=== PATIENT | male | born 1950 | race Caucasian/White ===

== ENCOUNTER 2020-02-21 21:30 | Emergency (ER) | payer MEDICARE, SELFPAY ==
[2020-02-21 21:39] VITALS: BP 131/76; PULSE 88; RESP 16; TEMP 36.9; O2SAT 96; BMI 25.1
--- NOTE | 2020-02-21 22:56 | ED.GENADULT ---
HPI - General Adult General Chief complaint: Weakness Stated complaint: ?COVID SYMPTOMS Time Seen by Provider: 02/21/20 22:46 Source: patient Mode of arrival: ambulatory Limitations: no limitations History of Present Illness HPI narrative: patient comes to emergency room complaining of not feeling quite right. Patient states he does not have any pain, no respiratory symptoms. Patient states he is concerned that his son was recently diagnosed with COVID-19, was in the hospital for 7 days and recently discharged. Patient requesting a COVID test. Patient denies body aches, no fever no chills. MD complaint: Requesting COVID test Related Data Home Medications Medication Instructions Recorded Confirmed amiodarone 200 mg PO DAILY 02/21/20 02/21/20 amlodipine 5 mg PO DAILY 02/21/20 02/21/20 aspirin [Aspir-81] 81 mg PO DAILY 02/21/20 02/21/20 atorvastatin 80 mg PO DAILY 02/21/20 02/21/20 clopidogrel 75 mg PO DAILY 02/21/20 02/21/20 folic acid 1 mg PO DAILY 02/21/20 02/21/20 lisinopril 20 mg PO DAILY 02/21/20 02/21/20 metformin 500 mg PO BID 02/21/20 02/21/20 metoprolol succinate 50 mg PO DAILY 02/21/20 02/21/20 paroxetine HCl 20 mg PO DAILY 02/21/20 02/21/20 thiamine HCl (vitamin B1) [Vitamin 100 mg PO DAILY 02/21/20 02/21/20 B-1] Allergies Allergy/AdvReac Type Severity Reaction Status Date / Time No Known Allergies Allergy Verified 02/21/20 21:39 [No Known Allergies*] Review of Systems Review of Systems: Appearance: Alert. Oriented X3. No acute distress. states he does not feel quite right, patient unable to further explain Eyes: Pupils equal, round and reactive to light. ENT: Pharynx normal. Neck: Normal inspection. Neck supple. No lymph nodes noted. No crepitus CVS: Normal heart rate and rhythm. Pulses normal. Normal S1 and S2 Respiratory: No respiratory distress. Breath sounds normal. No Wheezing. No rales Abdomen: Soft and nontender. No rigidity. No distention. good BS x4 Skin: Skin warm and dry. Normal skin color. Normal skin turgor. Extremities: No lower extremity edema. No lower extremity edema. No Lacerations. No Rash Neuro: Oriented X 3. No motor deficit. No sensory deficit. Moving all extermities. No slurred speech. [facility] Past Medical History Medical History Depression Diabetes Hypertension Surgical History H/O kidney removal Social History Social History Advance Directives: No Physical Exam Vital Signs: Vital Signs: Last Vital Signs Temp 98.4 F 02/21/20 21:39 Pulse 88 02/21/20 21:39 Resp 16 02/21/20 21:39 BP 131/76 02/21/20 21:39 Pulse Ox 96 02/21/20 21:39 Body Mass Index 25.1 Appearance: Alert. Oriented X3. No acute distress. Eyes: Pupils equal, round and reactive to light. ENT: Pharynx normal. Neck: Normal inspection. Neck supple. No lymph nodes noted. No crepitus CVS: Normal heart rate and rhythm. Pulses normal. Normal S1 and S2 Respiratory: No respiratory distress. Breath sounds normal. No Wheezing. No rales Abdomen: Soft and nontender. No rigidity. No distention. good BS x4 Skin: Skin warm and dry. Normal skin color. Normal skin turgor. Extremities: No lower extremity edema. No lower extremity edema. No Lacerations. No Rash Neuro: Oriented X 3. No motor deficit. No sensory deficit. Moving all extermities. No slurred speech. Course Course Course Narrative: patient being tested for COVID-19. Discharge Plan Discharge Clinical Impression: Encounter for screening laboratory testing for COVID-19 virus Patient Disposition: Home, Self-Care Additional Instructions: please remain self quarantine until you get your results back. He will receive a phone call within 72 hours if your COVID-19 test is positive. Please follow-up with her primary care physician. If you have any worsening symptoms, shortness of breaths please return to the emergency room Prescriptions: No Action metformin 500 mg tablet 500 mg PO BID RF: 0 atorvastatin 80 mg tablet 80 mg PO DAILY RF: 0 amiodarone 200 mg tablet 200 mg PO DAILY RF: 0 metoprolol succinate 50 mg tablet extended release 24 hr 50 mg PO DAILY RF: 0 lisinopril 20 mg tablet 20 mg PO DAILY RF: 0 thiamine HCl (vitamin B1) [Vitamin B-1] 100 mg Tablet 100 mg PO DAILY RF: 0 amlodipine 2.5 mg tablet 5 mg PO DAILY RF: 0 clopidogrel 75 mg Tablet 75 mg PO DAILY RF: 0 aspirin [Aspir-81] 81 mg Tablet,Delayed Release (Dr/Ec) 81 mg PO DAILY RF: 0 paroxetine HCl 20 mg tablet 20 mg PO DAILY RF: 0 folic acid 1 mg tablet 1 mg PO DAILY RF: 0
== END 2020-02-21 23:19 | disposition home or self-care (01) ==
PROVIDERS: Emergency Provider Emergency Medicine; PCP Nurse Practitioner Family
DX: R50.9 Fever, unspecified (principal); Z20.828 Contact with and (suspected) exposure to other viral communicable diseases; Z79.899 Other long term (current) drug therapy
CPT/HCPCS: 99283; U0003

== ENCOUNTER 2020-09-09 13:38 | Outpatient (REF) | payer MEDICARE, SELFPAY | END 2020-09-09 13:39 | disposition home or self-care (01) | LOC: HO.LAB 13:38 | PROVIDERS: PCP Nurse Practitioner Family; Visit Provider Internal Medicine | DX: Z20.822 Contact with and (suspected) exposure to COVID-19 (principal) | CPT/HCPCS: U0003; U0005 ==

== ENCOUNTER 2021-05-18 13:03 | Outpatient (REF) | payer MEDICARE, SELFPAY ==
--- NOTE | ~2021-05-18 | CT_ITS ---
EXAMINATION: CT CHEST SCREENING CLINICAL INFORMATION: Nicotine dependence. Current smoker. 96-ywbl-lvax history. COMPARISON: Previous chest CT scans most recent 10/30/2019 and abdominal and pelvic CT September 2018. TECHNIQUE: Multidetector volumetric CT imaging of the chest is performed without contrast using low dose technique. Additional 2D coronal and sagittal reformatted images and axial 3D maximum intensity projection (MIP) images are generated on the CT workstation. This CT examination was performed using dose optimization techniques as appropriate, variously including the following: *Automated exposure control *Adjustment of mA and/or kV according to patient size (this includes techniques or standardized protocols for targeted exams where dose is matched to indication/reason for exam; i.e. extremities or head) *Use of iterative reconstruction technique DLP: 60 mGy-cm FINDINGS: LUNGS: There is evidence of emphysema. There is increased peripheral attenuation and increased interstitial markings suggestive of interstitial disease. There is interval increase in bilateral upper lobe peribronchial nodules or increased peribronchial attenuation. Largest is size a semisolid or heterogeneous left upper lobe nodule now measuring 5 mm axial image 138 series 5. There is a 4 mm new or increasing right lower lobe nodule axial image 283 series 5. Pulmonary nodules are otherwise stable. No endobronchial or endotracheal lesion. MEDIASTINUM: There is a left subclavian AICD device with tip projecting over the right ventricular apex. The heart is upper normal in size. There is coronary artery calcification. There is mild dilatation of the ascending thoracic aorta measuring 4.3 cm that is stable. There is no pericardial effusion. There are small mediastinal lymph nodes. No enlarged lymph nodes are seen. PLEURA: There is no pleural effusion. No pleural mass or thickening. AXILLA: No lymphadenopathy. UPPER ABDOMEN: The left kidney is not seen. There are right renal cysts. There is dilatation of the visualized upper abdominal aorta measuring at least 3.5 cm in diameter. This is increased from previous CT when this measured 2.7 cm. OSSEOUS STRUCTURES: There is a healing right posterior 10th rib fracture that is new in the interval from previous exam. There are old bilateral posterior rib fractures. CT/CT lung screening IMPRESSION: Emphysema and interstitial disease. New right lower nodule. Increasing bilateral upper lobe peribronchial nodules or increased peribronchial attenuation question representing airways disease. Increasing dilatation of the visualized abdominal aorta. ASSESSMENT: Lung-RADS category 3S. Probably benign. The S is for increasing dilatation of the abdominal aorta. RECOMMENDATION: Six-month low-dose chest CT follow-up recommended. Abdominal aorta imaging recommended.
== END 2021-05-18 13:04 | disposition home or self-care (01) ==
LOC: HO.CT 13:03
PROVIDERS: PCP Nurse Practitioner Family; Visit Provider Physician Assistant Medical
DX: Z12.2 Encounter for screening for malignant neoplasm of respiratory organs (principal); Z87.891 Personal history of nicotine dependence
CPT/HCPCS: 71271

== ENCOUNTER 2021-10-13 14:23 | Outpatient (REF) | payer MEDICARE, SELFPAY ==
[2021-10-13 16:18] LABS: COVID-19 Test Negative (Negative)
== END 2021-10-13 14:24 | disposition home or self-care (01) ==
LOC: HO.LAB 14:23
PROVIDERS: PCP Nurse Practitioner Family; Visit Provider Internal Medicine
DX: Z20.822 Contact with and (suspected) exposure to COVID-19 (principal)
CPT/HCPCS: 87635